=== PATIENT | female | born 1995 | race Caucasian/White ===

== ENCOUNTER 2019-09-09 10:34 | Emergency (ER) | payer OTHER ==
[~2019-09-09] VITALS: Ht 162.5 cm; Wt 104.3 kg
[2019-09-09 11:12] LABS: BILIRUBIN NEGATIVE (NEGATIVE); BLOOD 3+ (NEGATIVE); CLARITY CLOUDY (CLEAR); COLOR YELLOW (YELLOW); GLUCOSE NEGATIVE (NEGATIVE); KETONE NEGATIVE (NEGATIVE); LEUKO ESTERASE 1+ (NEGATIVE); NITRITE POSITIVE (NEGATIVE); UROBILINOGEN >= 8.0 E.U./dl (0.2-1.0)
[2019-09-09 11:21] LABS: BACTERIA 4+; EPITHELIAL CELLS 45-50; RBC 41-50 rbc/hpf (0-2); WBC TNTC wbc/hpf (0-5)
[2019-09-09] MEDS ORDERED: PYRIDIUM200 M1 PO (11:30)
[2019-09-09] MEDS ORDERED: SEPTDS PO (11:30)
== END 2019-09-09 11:48 | disposition home or self-care (01) ==
LOC: ED 10:34
PROVIDERS: Physician Assistant
DX: N39.0 Urinary tract infection, site not specified (principal)

== ENCOUNTER 2020-11-03 11:15 | Emergency (ER) | payer OTHER ==
[~2020-11-03] VITALS: Wt 119.7 kg
[~2020-11-03 11:15] MED LIST: PYRIDIUM200 M1 PO; SEPTDS PO
== END 2020-11-03 11:41 | disposition home or self-care (01) ==
LOC: ED 11:15
DX: M25.511 Pain in right shoulder (principal); Z79.899 Other long term (current) drug therapy